=== PATIENT | male | born 1975 | race Caucasian/White ===

== ENCOUNTER → 2021-03-12 | Outpatient (CLI) | payer BC, OTHER ==
[~2021-03-12] MED LIST: ARIP1TAB6 PO; ATOM100C6 PO; ATOR40TA75 PO; BUPR300T92 PO; PANT40TA29 PO; SOLI10TA PO; VITA200032 PO; ZOLO100T PO
== END ==
LOC: M LABSMTC 10:19
PROVIDERS: ATTEND Anesthesiology
DX: Z01.812 Encounter for preprocedural laboratory examination (principal); Z20.822 Contact with and (suspected) exposure to COVID-19

== ENCOUNTER → 2021-07-13 | Outpatient (CLI) | payer OTHER | LOC: M SLEEP HO 12:26 | PROVIDERS: ATTEND Physician Assistant | DX: R06.83 Snoring (principal) ==

== ENCOUNTER → 2021-10-01 | Outpatient (CLI) | payer OTHER | LOC: M SLEEP 20:00 | PROVIDERS: ATTEND Physician Assistant | DX: G47.33 Obstructive sleep apnea (adult) (pediatric) (principal) ==

== ENCOUNTER → 2022-03-30 | Outpatient (REF) | payer OTHER ==
[2022-03-30 17:37] LABS: BASO % 0.4 % (0.0-1.0); EOS # 0.1 10^3/uL (0.0-0.5); EOS % 1.7 % (0.0-3.0); HEMATOCRIT 45.7 % (42.0-52.0); HEMOGLOBIN 15.2 g/dl (13.5-17.5); LYMPH # 1.6 10^3/uL (1.5-5.0); LYMPH % 19.6 % (24.0-44.0); MEAN CORPUSCULAR HEMOGLOBIN 28.7 pg (27.0-33.0); MEAN CORPUSCULAR HGB CONC 33.3 g/dl (32.0-36.5); MEAN CORPUSCULAR VOLUME 86.4 fl (80.0-96.0); MONO # 0.5 10^3/uL (0.0-0.8); MONO % 6.1 % (2.0-8.0); NEUTROPHILS # 5.9 10^3/uL (1.5-8.5); PLATELET COUNT, AUTOMATED 303 10^3/uL (150-450); RED BLOOD COUNT 5.29 10^6/uL (4.30-6.10); WHITE BLOOD COUNT 8.2 10^3/uL (4.0-10.0)
[2022-03-30 17:47] LABS: ALBUMIN 4.1 G/DL (3.2-5.2); ALKALINE PHOSPHATASE 149 U/L (46-116); ALT/SGPT 24 U/L (7.0-40); AST/SGOT 17 U/L (<34); BILIRUBIN,TOTAL 0.4 MG/DL (0.3-1.2); BLOOD UREA NITROGEN 20 MG/DL (9-23); CALCIUM LEVEL 9.3 MG/DL (8.5-10.1); CARBON DIOXIDE LEVEL 26 MMOL/L (20-31); CHLORIDE LEVEL 104 MMOL/L (98-107); CHOLESTEROL LEVEL 162 MG/DL (<200); CHOLESTEROL RISK RATIO 3.81 (<5); CREATININE FOR GFR 1.06 MG/DL (0.70-1.30); GLOMERULAR FILTRATION RATE > 60.0 (>60); GLUCOSE, FASTING 85 MG/DL (60-100); HDL CHOLESTEROL 42.5 MG/DL (>40); LDL CHOLESTEROL 93.5 MG/DL (<100); NON-HDL-C 120 MG/DL; SODIUM LEVEL 137 MMOL/L (136-145); TOTAL PROTEIN 6.7 G/DL (5.7-8.2); TRIGLYCERIDES LEVEL 130 MG/DL (<150)
[2022-03-30 18:05] LABS: THYROID STIMULATING HORMONE 0.936 uIU/ML (0.55-4.78)
[2022-03-30 18:20] LABS: HEMOGLOBIN A1c 5.6 % (4.0-6.0)
== END ==
LOC: M LAB REF 16:52
PROVIDERS: ATTEND Pediatrics
DX: E78.5 Hyperlipidemia, unspecified (principal); K21.9 Gastro-esophageal reflux disease without esophagitis; Z51.81 Encounter for therapeutic drug level monitoring

== ENCOUNTER → 2022-09-03 | Outpatient (CLI) | payer OTHER | LOC: M SLEEP 20:00 | PROVIDERS: ATTEND Physician Assistant | DX: G47.33 Obstructive sleep apnea (adult) (pediatric) (principal) ==

== ENCOUNTER → 2022-11-15 | Outpatient (REF) | payer OTHER | LOC: M LAB REF 18:02 | PROVIDERS: ATTEND Surgery | DX: L72.0 Epidermal cyst (principal) ==

== ENCOUNTER → 2023-02-02 | Outpatient (REF) | payer OTHER ==
[2023-02-02 17:27] LABS: CHOLESTEROL RISK RATIO 3.14 (<5); HDL CHOLESTEROL 34.7 MG/DL (>40); LDL CHOLESTEROL 58.9 MG/DL (<100); NON-HDL-C 74.3 MG/DL
== END ==
LOC: M LAB REF 16:11
PROVIDERS: ATTEND Family Medicine Addiction Medicine
DX: E78.5 Hyperlipidemia, unspecified (principal)

== ENCOUNTER → 2023-05-17 | Outpatient (REF) | payer OTHER ==
[2023-05-17 13:11] LABS: BASO % 0.5 % (0.0-1.0); EOS # 0.2 10^3/uL (0.0-0.5); EOS % 1.8 % (0.0-3.0); HEMATOCRIT 47.8 % (42.0-52.0); HEMOGLOBIN 16.1 g/dl (13.5-17.5); LYMPH # 1.9 10^3/uL (1.5-5.0); LYMPH % 22.5 % (24.0-44.0); MEAN CORPUSCULAR HEMOGLOBIN 29.7 pg (27.0-33.0); MEAN CORPUSCULAR HGB CONC 33.7 g/dl (32.0-36.5); MEAN CORPUSCULAR VOLUME 88.2 fl (80.0-96.0); MONO # 0.5 10^3/uL (0.0-0.8); MONO % 5.9 % (2.0-8.0); NEUTROPHILS # 5.7 10^3/uL (1.5-8.5); NEUTROPHILS % 69.2 % (36.0-66.0); PLATELET COUNT, AUTOMATED 244 10^3/uL (150-450); RED BLOOD COUNT 5.42 10^6/uL (4.30-6.10); WHITE BLOOD COUNT 8.3 10^3/uL (4.0-10.0)
[2023-05-17 13:26] LABS: HEMOGLOBIN A1c 5.7 % (4.0-6.0)
[2023-05-17 13:40] LABS: ALBUMIN 4.2 G/DL (3.2-5.2); BILIRUBIN,DIRECT 0.2 MG/DL (<0.4); BILIRUBIN,TOTAL 0.5 MG/DL (0.3-1.2); PERCENT SATURATION 29.6 % (19.7-50.0); TOTAL PROTEIN 6.5 G/DL (5.7-8.2)
[2023-05-17 13:44] LABS: FERRITIN 67.6 NG/ML (10.5-307.3); FOLATE 22.1 NG/ML (>5.4); THYROID STIMULATING HORMONE 2.111 uIU/ML (0.55-4.78)
== END ==
LOC: M LAB REF 12:31
PROVIDERS: ATTEND Nurse Practitioner Family
DX: R63.0 Anorexia (principal); Z68.26 Body mass index [BMI] 26.0-26.9, adult; E66.3 Overweight; R74.8 Abnormal levels of other serum enzymes

== ENCOUNTER → 2023-08-04 | Outpatient (REF) | payer OTHER ==
[~2023-08-04] MED LIST changes: +BUPR-597 PO; -BUPR300T92 PO
[2023-08-04 19:51] LABS: THYROXINE (T4) 7.5 UG/DL (4.5-10.9)
[2023-08-04 19:52] LABS: ALBUMIN 4.1 G/DL (3.2-5.2); BILIRUBIN,DIRECT 0.1 MG/DL (<0.4); BILIRUBIN,TOTAL 0.3 MG/DL (0.3-1.2); CHOLESTEROL RISK RATIO 3.9 (<5); THYROID STIMULATING HORMONE 2.71 uIU/ML (0.55-4.78); TOTAL PROTEIN 6.9 G/DL (5.7-8.2)
[2023-08-04 20:23] LABS: FREE THYROXINE INDEX 3.1 % (1.4-3.8)
== END ==
LOC: M LAB REF 16:35
PROVIDERS: ATTEND Nurse Practitioner Family
DX: E78.5 Hyperlipidemia, unspecified (principal); F41.8 Other specified anxiety disorders; R74.8 Abnormal levels of other serum enzymes; R43.2 Parageusia

== ENCOUNTER → 2023-08-10 | Outpatient (CLI) | payer OTHER | LOC: M RAD 11:27 | PROVIDERS: ATTEND Nurse Practitioner Family | DX: M54.50 Low back pain, unspecified (principal) ==

== ENCOUNTER 2023-09-20 10:25 | Emergency (ER) | payer OTHER ==
[~2023-09-20] VITALS: Ht 167.6 cm; Wt 65.6 kg
[2023-09-20] MEDS ORDERED: CLON0.5T2 (10:32)
[2023-09-20] MEDS ORDERED: VYVA30CA4 (10:32)
[2023-09-20] MEDS ORDERED: FLUV100C (10:32)
[2023-09-20] MEDS ORDERED: DEXT1TAB19 (10:32)
[2023-09-20 13:41] LABS: METHADONE URINE NEGATIVE (NEGATIVE)
[2023-09-20 13:42] LABS: BARBITURATES URINE NEGATIVE (NEGATIVE); BENZODIAZEPINES URINE NEGATIVE (NEGATIVE); COCAINE METABOLITE URINE NEGATIVE (NEGATIVE); OPIATES URINE NEGATIVE (NEGATIVE); PHENCYCLIDINE URINE NEGATIVE (NEGATIVE)
[2023-09-20 13:45] LABS: AMPHETAMINES LEVEL URINE POSITIVE (NEGATIVE); CANNABINOIDS URINE POSITIVE (NEGATIVE)
[2023-09-20 13:47] LABS: HEMATOCRIT 45.6 % (42.0-52.0); HEMOGLOBIN 15.2 g/dl (13.5-17.5); MEAN CORPUSCULAR HEMOGLOBIN 29.6 pg (27.0-33.0); MEAN CORPUSCULAR HGB CONC 33.3 g/dl (32.0-36.5); MEAN CORPUSCULAR VOLUME 88.7 fl (80.0-96.0); PLATELET COUNT, AUTOMATED 243 10^3/uL (150-450); RED BLOOD COUNT 5.14 10^6/uL (4.30-6.10)
[2023-09-20 14:08] LABS: ETHYL ALCOHOL (ETHANOL) 0.004 % (0.000-0.010)
[2023-09-20 14:10] LABS: ALBUMIN 3.9 G/DL (3.2-5.2); ALKALINE PHOSPHATASE 130 U/L (46-116); ALT/SGPT 13 U/L (7.0-40); AST/SGOT < 8 U/L (<34); BILIRUBIN,DIRECT 0.1 MG/DL (<0.4); BILIRUBIN,TOTAL 0.3 MG/DL (0.3-1.2); BLOOD UREA NITROGEN 9 MG/DL (9-23); CALCIUM LEVEL 9.4 MG/DL (8.5-10.1); CARBON DIOXIDE LEVEL 28 MMOL/L (20-31); CHLORIDE LEVEL 109 MMOL/L (98-107); CREATININE FOR GFR 1.18 MG/DL (0.70-1.30); GLOMERULAR FILTRATION RATE > 60.0 (>60); GLUCOSE, FASTING 96 MG/DL (60-100); POTASSIUM SERUM 4.5 MMOL/L (3.5-5.1); SALICYLATE LEVEL < 3.0 MG/DL (<30); SODIUM LEVEL 141 MMOL/L (136-145); TOTAL PROTEIN 6.3 G/DL (5.7-8.2)
[2023-09-20 14:12] LABS: THYROID STIMULATING HORMONE 1.368 uIU/ML (0.55-4.78)
[2023-09-20 17:59] VITALS: BP 128/74; TEMP 97.8; O2SAT 98
== END 2023-09-20 17:59 | disposition home or self-care (01) ==
LOC: M ED 10:25
DX: F42.9 Obsessive-compulsive disorder, unspecified (principal); F90.9 Attention-deficit hyperactivity disorder, unspecified type; F17.200 Nicotine dependence, unspecified, uncomplicated; Z79.899 Other long term (current) drug therapy; Z88.1 Allergy status to other antibiotic agents

== ENCOUNTER 2023-12-29 07:19 | Day surgery (SDC) | payer OTHER ==
[~2023-12-29] VITALS: Ht 165.1 cm; Wt 68.9 kg
[~2023-12-29 07:19] MED LIST changes: +ATOR1TAB21 PO; +BUPR150T12 PO; +CLON0.5T2; +CLON1TAB8 PO; +DEXT1TAB19 PO; +FLUV100C; +FLUV150C PO; +NS 250 ML IV ONE; +OLAN1TAB20 PO; +PANT20TA6 PO; +VILO200C PO; +VYVA30CA4 PO
[2023-12-29] MEDS ORDERED: LIDOCAINE 2% 100MG/5ML SDV (FOR ANES.) As Ordered ONE (08:14)
[2023-12-29] MEDS ORDERED: propofoL 200 MG/20 ML VIAL As Ordered ONE (08:15)
[2023-12-29 08:35] VITALS: TEMP 98.3
[2023-12-29 09:14] VITALS: BP 122/79; O2SAT 99
== END 2023-12-29 09:25 | disposition home or self-care (01) ==
LOC: M OPP 07:19
PROVIDERS: ATTEND Surgery
DX: Z12.11 Encounter for screening for malignant neoplasm of colon (principal); Z12.12 Encounter for screening for malignant neoplasm of rectum; D12.0 Benign neoplasm of cecum; D12.4 Benign neoplasm of descending colon; K64.0 First degree hemorrhoids; E78.00 Pure hypercholesterolemia, unspecified; G47.30 Sleep apnea, unspecified; N32.81 Overactive bladder; Z79.899 Other long term (current) drug therapy; Z86.018 Personal history of other benign neoplasm; Z88.1 Allergy status to other antibiotic agents; F17.210 Nicotine dependence, cigarettes, uncomplicated; E89.6 Postprocedural adrenocortical (-medullary) hypofunction

== ENCOUNTER → 2024-04-05 | Outpatient (CLI) | payer OTHER ==
[~2024-04-05] MED LIST changes: -NS 250 ML IV ONE
[2024-04-05 09:40] LABS: APPEARANCE, URINE CLEAR (CLEAR); BACTERIA, URINE AUTO NEGATIVE (NEGATIVE); BILIRUBIN, URINE AUTO NEGATIVE (NEGATIVE); BLOOD, URINE BLOOD NEGATIVE (NEGATIVE); COLOR, URINE STRAW (YELLOW); GLUCOSE, URINE (UA) AUTO NEGATIVE (NEGATIVE); KETONE, URINE AUTO NEGATIVE (NEGATIVE); LEUKOCYTE ESTERASE, URINE AUTO NEGATIVE (NEGATIVE); NITRITE, URINE AUTO NEGATIVE (NEGATIVE); PROTEIN, URINE AUTO NEGATIVE (NEGATIVE); RBC, URINE AUTO 1 /HPF (0-3); SPECIFIC GRAVITY URINE AUTO 1.004 (1.002-1.035); SQUAMOUS EPITHELIAL CELL UR AU 0 /HPF (0-6); UROBILINOGEN, URINE AUTO 0.2 mg/dL (0.0-2.0); WBC, URINE AUTO 0 /HPF (0-3)
[2024-04-05 09:42] LABS: CORTISOL AM 13.1 UG/DL (4.3-22.4)
[2024-04-05 09:44] LABS: ALBUMIN 3.4 G/DL (3.2-5.2); ALKALINE PHOSPHATASE 147 U/L (40-129); ALT/SGPT 130 U/L (7.0-40); AST/SGOT 48 U/L (<34); BILIRUBIN,DIRECT < 0.1 MG/DL (<0.4); BILIRUBIN,TOTAL 0.3 MG/DL (0.3-1.2); BLOOD UREA NITROGEN 18 MG/DL (9-23); CARBON DIOXIDE LEVEL 30 MMOL/L (20-31); CHLORIDE LEVEL 107 MMOL/L (98-107); CHOLESTEROL LEVEL 175 MG/DL (<200); CHOLESTEROL RISK RATIO 5.48 (<5); CREATININE FOR GFR 1.17 MG/DL (0.70-1.30); GLOMERULAR FILTRATION RATE > 60.0 (>60); GLUCOSE, FASTING 95 MG/DL (60-100); HDL CHOLESTEROL 31.9 MG/DL (>40); LDL CHOLESTEROL 109.5 MG/DL (<100); NON-HDL-C 143.1 MG/DL; POTASSIUM SERUM 4.3 MMOL/L (3.5-5.1); SODIUM LEVEL 141 MMOL/L (136-145); TOTAL PROTEIN 6.3 G/DL (5.7-8.2); TRIGLYCERIDES LEVEL 168 MG/DL (<150)
[2024-04-05 09:47] LABS: TESTOSTERONE 904 NG/DL (241-827)
[2024-04-05 10:04] LABS: OSMOLALITY SERUM 298 MOSM/KG (275-295)
[2024-04-08 11:21] LABS: PSA FREE 0.2 ng/mL; PSA TOTAL 0.4 ng/mL (< OR = 4.0)
== END ==
LOC: M LAB 07:48
PROVIDERS: ATTEND Nurse Practitioner Family
DX: R53.83 Other fatigue (principal); R39.9 Unspecified symptoms and signs involving the genitourinary system; R23.2 Flushing; Z86.018 Personal history of other benign neoplasm; R74.8 Abnormal levels of other serum enzymes; N32.81 Overactive bladder; E78.5 Hyperlipidemia, unspecified

== ENCOUNTER → 2024-04-09 | Outpatient (REF) | payer OTHER | LOC: M LAB REF 16:27 | PROVIDERS: ATTEND Nurse Practitioner Family | DX: R23.2 Flushing (principal) ==

== ENCOUNTER → 2024-07-09 | Outpatient (CLI) | payer OTHER ==
[~2024-07-09] MED LIST changes: -BUPR-597 PO; +BUPR-766 PO
== END ==
LOC: M RAD 17:20
PROVIDERS: ATTEND Nurse Practitioner Family
DX: M50.20 Other cervical disc displacement, unspecified cervical region (principal)

== ENCOUNTER → 2024-07-15 | Outpatient (REF) | payer OTHER ==
[2024-07-15 13:55] LABS: ALBUMIN 3.7 G/DL (3.2-5.2); ALKALINE PHOSPHATASE 120 U/L (40-129); ALT/SGPT 15 U/L (7.0-40); AST/SGOT 11 U/L (<34); BILIRUBIN,DIRECT < 0.1 MG/DL (<0.4); BILIRUBIN,TOTAL 0.2 MG/DL (0.3-1.2); CHOLESTEROL LEVEL 115 MG/DL (<200); CHOLESTEROL RISK RATIO 3.63 (<5); HDL CHOLESTEROL 31.6 MG/DL (>40); LDL CHOLESTEROL 62.6 MG/DL (<100); NON-HDL-C 83.4 MG/DL; TOTAL PROTEIN 6.1 G/DL (5.7-8.2); TRIGLYCERIDES LEVEL 104 MG/DL (<150)
== END ==
LOC: M LAB REF 13:24
PROVIDERS: ATTEND Nurse Practitioner Family
DX: R74.01 Elevation of levels of liver transaminase levels (principal)